=== PATIENT | female | born 1955 | race Caucasian/White ===

== ENCOUNTER 2016-06-29 12:50 | Emergency (ER) | payer BC ==
[~2016-06-29] VITALS: Ht 160 cm; Wt 81.4 kg
[~2016-06-29 12:50] MED LIST: ASPIRIN325 MG PO; Aspirin E.C. PO; BRILINTA PO; COREG6.25 M1 PO; Coreg PO; Lipitor PO; Pravachol PO
[2016-06-29 13:56] LABS: MCH 30.3 PG (29.0-34.0); MCHC 33.5 G/DL (30.0-36.0); MCV 90.3 FL (83-99); MEAN PLAT.VOLUME 9.6 uM^3 (9.5-12.4); PLATELET COUNT 198 K/uL (156-360); RBC DIS.WIDTH-SD 40.1 % (39-53); RED BLOOD COUNT 4.76 M/uL (3.80-5.20); WHITE BLOOD COUNT 14.7 K/uL (4.1-10.2)
[2016-06-29 14:17] LABS: TROP-I INTERPRETATION NEGATIVE; TROPONIN-I 0.02 ng/mL (0.0-0.30)
[2016-06-29 14:51] LABS: CHLORIDE 109 mEq/L (99-109); POTASSIUM 4.1 mEq/L (3.7-5.4); SODIUM 142 mEq/L (136-147)
[2016-06-29 14:52] LABS: GLUCOSE 96 mg/dL (70-99)
[2016-06-29 14:54] LABS: ANION GAP 9 MEQ/L (2-14)
[2016-06-29 14:56] LABS: GFR ESTIMATE (CALCULATED) > 59 mL/min/
[2016-06-29 14:57] LABS: UREA NITROGEN (BUN) 11 mg/dL (9-23)
[2016-06-29] MEDS ORDERED: HYCODAN SYRUP480 ML PO (15:03)
[2016-06-29] MEDS ORDERED: ZITHROMAX250 MG PO (15:03)
[2016-06-29] MEDS ORDERED: VENTOLIN HFA18 GM IH (15:11)
[2016-06-29 15:52] VITALS: BP 122/82
== END 2016-06-29 15:52 | disposition home or self-care (01) ==
LOC: EME 12:50 → EXP 12:50
PROVIDERS: Nurse Practitioner Family
DX: J40 Bronchitis, not specified as acute or chronic (principal); E78.5 Hyperlipidemia, unspecified; I10 Essential (primary) hypertension; I25.2 Old myocardial infarction; I25.10 Atherosclerotic heart disease of native coronary artery without angina pectoris; G89.29 Other chronic pain; F17.200 Nicotine dependence, unspecified, uncomplicated
CPT/HCPCS: 71020; 80048; 84484; 85027; 93005; 94640; 99281; 99284; J7030

== ENCOUNTER 2016-08-05 09:28 | Observation (INO) | payer BC ==
[~2016-08-05] VITALS: Ht 160 cm; Wt 81.2 kg
[~2016-08-05 09:28] MED LIST changes: +HYCODAN SYRUP480 ML PO; +VENTOLIN HFA18 GM IH; +ZITHROMAX250 MG PO
[2016-08-05 10:27] LABS: EOSINOPHIL (%) 8.7 % (0-5); EOSINOPHIL COUNT 0.6 K/uL (0-0.3); IMMATURE GRANULOCYTE (%) 0.3 % (0.0-0.7); INSTRUMENT ABS NEUTROPHIL CT 4.1 K/uL; LYMPHOCYTE COUNT 1.7 K/uL (1.0-2.8); MCH 30.4 PG (29.0-34.0); MCHC 34.3 G/DL (30.0-36.0); MCV 88.8 FL (83-99); MEAN PLAT.VOLUME 9.9 uM^3 (9.5-12.4); MONOCYTE (%) 6.7 % (3-12); MONOCYTE COUNT 0.5 K/uL (0-0.8); NEUTROPHIL (%) 59.7 % (45-76); NEUTROPHIL COUNT 4.1 K/uL (1.8-6.4); PLATELET COUNT 185 K/uL (156-360); RBC DIS.WIDTH-CV 12.1 % (11.8-14.6); RBC DIS.WIDTH-SD 39.7 % (39-53); RED BLOOD COUNT 4.73 M/uL (3.80-5.20); WHITE BLOOD COUNT 6.9 K/uL (4.1-10.2)
[2016-08-05 10:34] LABS: PROTHROMBIN TIME 10.2 (9.2-11.2); PTT 30.6 (25-32)
[2016-08-05 11:19] LABS: TROP-I INTERPRETATION NEGATIVE; TROPONIN-I 0.14 ng/mL (0.0-0.30)
[2016-08-05 11:33] LABS: GFR ESTIMATE (CALCULATED) > 59 mL/min/; GLUCOSE 88 mg/dL (70-99); UREA NITROGEN (BUN) 14 mg/dL (9-23)
[2016-08-05 11:54] LABS: CHLORIDE 109 MEQ/L (99-109); POTASSIUM 4.1 MEQ/L (3.7-5.4); SODIUM 143 MEQ/L (136-147)
[2016-08-05] MEDS ORDERED: ASPIRIN EC325 MG PO (12:30)
[2016-08-05] MEDS ORDERED: COREG12.5 M1 PO (12:31)
[2016-08-05] MEDS ORDERED: LIPITOR40 MG PO (12:31)
[2016-08-05 16:00] VITALS: BP 131/72
[2016-08-05 17:58] VITALS: BP 114/55
[2016-08-05 18:28] LABS: TROP-I INTERPRETATION NEGATIVE; TROPONIN-I 0.23 ng/mL (0.0-0.30)
[2016-08-05 21:12] VITALS: BP 130/70
[2016-08-06 02:25] LABS: TOTAL BILIRUBIN 0.7 mg/dL (0.0-1.0)
[2016-08-06 02:26] LABS: ALKALINE PHOSPHATASE 75 IU/L (3-129)
[2016-08-06 02:29] LABS: DIRECT BILIRUBIN 0.2 mg/dL (0.0-0.3)
[2016-08-06 02:33] LABS: TROP-I INTERPRETATION NEGATIVE; TROPONIN-I 0.25 ng/mL (0.0-0.30)
[2016-08-06 04:00] VITALS: BP 136/77
[2016-08-06 04:15] LABS: HDL CHOLESTEROL 48 MG/DL (Desirable>=50); LDL CHOLESTEROL 175 mg/dL (Desirable<100); NON-HDL CHOLESTEROL 217 mg/dL (Desirable<160); TOTAL CHOLESTEROL 265 mg/dL (Desirable<200); TRIGLYCERIDES 212 MG/DL (Normal: <150)
[2016-08-06 07:09] VITALS: BP 146/74
[2016-08-06] MEDS ORDERED: ASPIRIN EC325 MG PO (11:47)
[2016-08-06] MEDS ORDERED: PANTOPRAZOLE SO40 MG PO (11:47)
[2016-08-06] MEDS ORDERED: LIPITOR40 MG PO (11:47)
[2016-08-06] MEDS ORDERED: NITROSTAT0.4 MG SL (11:53)
[2016-08-06 12:07] VITALS: BP 143/74
[2016-08-07] MEDS ORDERED: BRILINTA90 MG PO (16:44)
[2016-08-07] MEDS ORDERED: ASPIR-LOW81 MG PO (16:45)
[2016-08-07] MEDS ORDERED: ATORVASTATIN CA80 MG PO (16:46)
== END 2016-08-06 12:35 | disposition home or self-care (01) ==
LOC: EME 09:28 → EDOF 14:00 → 5WEST 14:00
PROVIDERS: Emergency Medicine; Family Medicine
DX: R07.2 Precordial pain (principal); I10 Essential (primary) hypertension; Z91.19 Patient's noncompliance with other medical treatment and regimen; I25.10 Atherosclerotic heart disease of native coronary artery without angina pectoris; E78.5 Hyperlipidemia, unspecified; E78.00 Pure hypercholesterolemia, unspecified; I25.2 Old myocardial infarction; E66.9 Obesity, unspecified; Z68.31 Body mass index [BMI] 31.0-31.9, adult; Z95.5 Presence of coronary angioplasty implant and graft; Z87.891 Personal history of nicotine dependence
CPT/HCPCS: 71010; 80048; 80061; 80076; 84443; 84484; 85025; 85610; 85730; 93005; 99281; 99285; G0378; J1644

== ENCOUNTER 2016-08-07 08:37 | Day surgery (SDC) | payer BC ==
[~2016-08-07] VITALS: Ht 160 cm; Wt 83.5 kg
[~2016-08-07 08:37] MED LIST changes: +ASPIRIN EC325 MG PO; +COREG12.5 M1 PO; +LIPITOR40 MG PO; +NITROSTAT0.4 MG SL; +PANTOPRAZOLE SO40 MG PO
[2016-08-07 15:30] VITALS: BP 95/53
[2016-08-07] MEDS ORDERED: BRILINTA90 MG PO (16:44)
[2016-08-07] MEDS ORDERED: ASPIR-LOW81 MG PO (16:45)
[2016-08-07] MEDS ORDERED: ATORVASTATIN CA80 MG PO (16:46)
[2016-08-07 17:24] VITALS: BP 118/62
[2016-08-07 17:25] VITALS: BP 130/66
[2016-08-07 20:00] VITALS: BP 133/75
[2016-08-07 20:09] LABS: EOSINOPHIL COUNT 0.6 K/uL (0-0.3); HEMATOCRIT 41.3 % (36.0-46.0); IMMATURE GRANULOCYTE (%) 0.3 % (0.0-0.7); INSTRUMENT ABS NEUTROPHIL CT 6.6 K/uL; MCH 30.7 PG (29.0-34.0); MCHC 34.1 G/DL (30.0-36.0); MEAN PLAT.VOLUME 9.9 uM^3 (9.5-12.4); MONOCYTE (%) 8.2 % (3-12); MONOCYTE COUNT 0.8 K/uL (0-0.8); NEUTROPHIL (%) 65.5 % (45-76); NEUTROPHIL COUNT 6.6 K/uL (1.8-6.4); PLATELET COUNT 222 K/uL (156-360); RBC DIS.WIDTH-CV 12.3 % (11.8-14.6); RBC DIS.WIDTH-SD 40.3 % (39-53); RED BLOOD COUNT 4.59 M/uL (3.80-5.20); WHITE BLOOD COUNT 10.1 K/uL (4.1-10.2)
[2016-08-08 00:09] VITALS: BP 103/53
[2016-08-08 05:55] LABS: EOSINOPHIL (%) 6.7 % (0-5); EOSINOPHIL COUNT 0.6 K/uL (0-0.3); HEMATOCRIT 40.8 % (36.0-46.0); IMMATURE GRANULOCYTE (%) 0.2 % (0.0-0.7); INSTRUMENT ABS NEUTROPHIL CT 5.2 K/uL; LYMPHOCYTE COUNT 1.8 K/uL (1.0-2.8); MCH 30.5 PG (29.0-34.0); MCHC 33.6 G/DL (30.0-36.0); MCV 90.9 FL (83-99); MEAN PLAT.VOLUME 9.8 uM^3 (9.5-12.4); MONOCYTE (%) 7.8 % (3-12); MONOCYTE COUNT 0.6 K/uL (0-0.8); NEUTROPHIL (%) 62.5 % (45-76); NEUTROPHIL COUNT 5.2 K/uL (1.8-6.4); PLATELET COUNT 182 K/uL (156-360); RBC DIS.WIDTH-CV 12.3 % (11.8-14.6); RBC DIS.WIDTH-SD 40.8 % (39-53); RED BLOOD COUNT 4.49 M/uL (3.80-5.20); WHITE BLOOD COUNT 8.3 K/uL (4.1-10.2)
[2016-08-08 05:57] VITALS: BP 117/65
[2016-08-08 06:23] LABS: ANION GAP 7 MEQ/L (2-14); CHLORIDE 111 MEQ/L (99-109); GFR ESTIMATE (CALCULATED) > 59 mL/min/; GLUCOSE 80 mg/dL (70-99); POTASSIUM 4.1 MEQ/L (3.7-5.4); SAMPLE HEMOLYSIS CHECK 0; SAMPLE ICTERIC CHECK 0; SAMPLE LIPEMIA CHECK 0; SODIUM 142 MEQ/L (136-147); UREA NITROGEN (BUN) 16 mg/dL (9-23)
[2016-08-08 08:27] VITALS: BP 119/57
== END 2016-08-08 12:45 | disposition home or self-care (01) ==
LOC: CATH 08:37 → 2SOUTH 12:20 → 4EAST 15:09
PROVIDERS: Internal Medicine Cardiovascular Disease
DX: I25.10 Atherosclerotic heart disease of native coronary artery without angina pectoris (principal); T82.855A Stenosis of coronary artery stent, initial encounter; Y83.1 Surgical operation with implant of artificial internal device as the cause of abnormal reaction of the patient, or of later complication, without mention of misadventure at the time of the procedure; I25.2 Old myocardial infarction; I10 Essential (primary) hypertension; E78.5 Hyperlipidemia, unspecified; Z87.891 Personal history of nicotine dependence; Z79.02 Long term (current) use of antithrombotics/antiplatelets; Z91.14 Patient's other noncompliance with medication regimen
CPT/HCPCS: 80048; 85025; 85347; 93005; C1725; C1769; C1874; C1876; C1887; G0378; J0360; J1644; J2250; J3010; J3246; J7030